=== PATIENT | female | born 1965 | race Caucasian/White ===

== ENCOUNTER → 2024-01-28 14:14 | Outpatient (REF) | payer OTHER, SELFPAY | LOC: HWRAD 14:14 | PROVIDERS: ATTENDING PHYSICIAN Obstetrics & Gynecology; FAMILY PHYSICIAN Internal Medicine | DX: Z87.42 Personal history of other diseases of the female genital tract (principal) | CPT/HCPCS: 76830; 76856 ==

== ENCOUNTER → 2024-09-17 14:26 | Outpatient (REF) | payer OTHER, SELFPAY | LOC: HWWDC 14:26 | PROVIDERS: ATTENDING PHYSICIAN Internal Medicine | DX: Z78.0 Asymptomatic menopausal state (principal); Z12.31 Encounter for screening mammogram for malignant neoplasm of breast | CPT/HCPCS: 77063; 77067; 77080 ==